=== PATIENT | female | born 1960 | race Caucasian/White ===

== ENCOUNTER 2018-01-18 14:32 | Inpatient (IN) | payer OTHER ==
--- NOTE | 2018-01-18 15:10 | PN ---
[facility] Progress Note Note: Patient is a 57 yo female who presents today for alcohol detox and intoxicated. C/O of feeling weak, lethargic and unable to standing independently Patient very unsteady on her feet, difficulty to provide appropriate hx. V/S 141/87, P103, RR 22, T99.5. Patient sent to [facility] via [facility] for further evaluation. Endorsed to Dr. Bledsoe.
--- NOTE | 2018-01-18 17:57 | PN ---
[facility] Progress Note Note: Patient medicated and cleared at [facility] and stable to continue detox, reports received from OPAL Levin.
--- NOTE | 2018-01-19 02:02 | HP ---
CIWA Score - CIWA Score Nausea/Vomitin Muscle Tremors: 4-Moderate,w/Arms Extend Anxiety: 4-Mod. Anxious/Guarded Agitation: 4-Moderately Restless Paroxysmal Sweats: 3 Orientation: 3-Disoriented Date>2 days Tacttile Disturbances: 0-None Auditory Disturbances: 0-None Visual Disturbances: 2-Mild Sensitivity Headache: 2-Mild CIWA-Ar Total Score: 25 Admission ROS BHS - HPI Chief Complaint: C/O WITHDRAWAL SX'S. SEEKING DETOX Allergies/Adverse Reactions: Allergies Allergy/AdvReac Type Severity Reaction Status Date / Time No Known Allergies Allergy Verified 01/18/18 15:56 History of Present Illness: 57 Y.O. FEMALE WITH ALCOHOLISM ADMITTED TO DETOX AFTER BEING MEDICALLY CLEARED FOR ALCOHOL INOXICATION W WEAKNESS AND ABD PAIN. CLIENT WAS CLEANRED BY [facility] AND REFERRED HERE FOR DETOX. THIS IS CLIENT FIRST ADMISSION HERE. SHE REPORTS HX /O PREVIOUS DETOX. LAST BEING A MONTH AGO AST [facility]. REPORTS LONGEST CLEAN TIME 3.5 YEARS. REPORTS FREQUENT BLACK OUTS BUT DENIES HX/O SEIZURE. DENIES AVH, PAST/PRESENT SI/HI. DENIES LEGALS PMHX- HTN, HLD, PRE-DM PSYCH- PTSD, DEPRESSION Medical Decision Making - Medical Decision Making 01/18/18 20:04 Pt received at sign out from OPAL Pleitez at 19:00. Pt pending medication and re- evaluation. -Pt states she feels much better after receiving a GI cocktail -Pt with diffuse abdominal tenderness without focal findings. Most likely secondary to vomiting -Labs with elevated liver enzymes; total bili WNL, no leukocytosis. -DC back to [facility] for detox. -I discussed the physical exam findings, ancillary test results and final diagnoses with the patient. I answered all of the patient's questions. The patient was satisfied with the care received and felt comfortable with the discharge plan and treatment plan. The Patient agrees to follow up with the primary care physician/specialist within 24-72 hours. Return precautions were given. *DC/Admit/Observation/Transfer Diagnosis at time of Disposition: Alcohol withdrawal Qualifiers: Complication of substance-induced condition: uncomplicated Qualified Code(s): F10.230 - Alcohol dependence with withdrawal, uncomplicated - Discharge Dispostion Disposition: HOME - Referrals Referrals: Niranjan Feliz MD [Staff Physician] - - Patient Instructions Printed Discharge Instructions: DI for Drug or Alcohol Withdrawal Additional Instructions: You were evaluated for alcohol withdrawal today. Please go to [facility] for admission. Please drink plenty of fluids. Return to emergency department for any new or worsening symptoms. - Post Discharge Activity Exam Limitations: No Limitations - Ebola screening Have you traveled outside of the country in the last 21 days: No Have you had contact with anyone from an Ebola affected area: No Do you have a fever: No - Review of Systems Constitutional: Chills, Loss of Appetite, Night Sweats, Changes in sleep EENT: reports: No Symptoms Reported Respiratory: reports: No Symptoms reported Cardiac: reports: No Symptoms Reported GI: reports: Nausea, Poor Appetite, Poor Fluid Intake, Abdominal cramping : reports: No Symptoms Reported Musculoskeletal: reports: No Symptoms Reported Integumentary: reports: No Symptoms Reported Neuro: reports: No Symptoms reported Endocrine: reports: Other (PPRE- DM) Hematology: reports: No Symptoms Reported Psychiatric: reports: Anxious, Depressed Other Systems: Reviewed and Negative Patient History - Patient Medical History Hx Anemia: No Hx Asthma: No Hx Chronic Obstructive Pulmonary Disease (COPD): No Hx Cancer: No Hx Cardiac Disorders: No Hx Congestive Heart Failure: No Hx Hypertension: Yes Hx Hypercholesterolemia: Yes Hx Pacemaker: No HX Cerebrovascular Accident: No Hx Seizures: No Hx Diabetes: Yes (PRE-DM) Hx Gastrointestinal Disorders: No Hx Liver Disease: No Hx Genitourinary Disorders: No Hx Sexually Transmitted Disorders: No Hx Renal Disease (ESRD): No Hx Thyroid Disease: No Hx Human Immunodeficiency Virus (HIV): No Hx Hepatitis C: No Hx Depression: Yes Hx Suicide Attempt: No Hx Bipolar Disorder: No Hx Schizophrenia: No Other Medical History: ANXIETY/ PTSD - Patient Surgical History Past Surgical History: No - PPD History Previous Implant?: Yes Documented Results: Negative w/o proof PPD to be Administered?: Yes - Reproductive History Patient is a Female of Child Bearing Age (11 -55 yrs old): Yes LMP comment: MENAPAUSE Patient : [place] - Smoking Cessation Smoking history: Current every day smoker Have you smoked in the past 12 months: No Aproximately how many cigarettes per day: 20 Cigars Per Day: 0 Hx Chewing Tobacco Use: No Initiated information on smoking cessation: Yes 'Breaking Loose' booklet given: 01/19/18 - Substance & Tx. History Hx Alcohol Use: Yes Hx Substance Use: Yes Substance Use Type: Alcohol Hx Substance Use Treatment: Yes ([facility]) - Substances Abused VODKA Route: Oral Frequency: Daily Amount used: 15 NIPS Age of first use: 42 Date of Last Use: 01/18/18 Family Disease History - Family Disease History Family Disease History: Diabetes: Father (ALCOHOLISM, HTN), Heart Disease: Father, Other: Grandparent (ALCOHOLISM), Father, Mother (ALCOHOLISM) Admission Physical Exam [facility] - Physical General Appearance: Yes: Appropriately Dressed, Mild Distress, Alcohol on Breath , Intoxicated, Tremorous, Sweating (FLUSHED), Anxious HEENTM: Yes: EOMI, Normocephalic, Normal Voice, ELLIOT, Pharynx Normal Respiratory: Yes: Chest Non-Tender, Lungs Clear, Normal Breath Sounds, No Respiratory Distress, No Accessory Muscle Use Neck: Yes: No masses,lesions,Nodules, Supple, Trachea in good position Breast: Yes: Breast Exam Deferred Cardiology: Yes: Regular Rhythm, Regular Rate, S1, S2 Abdominal: Yes: Non Tender, Soft, Increased Bowel Sounds, Protuberent Genitourinary: Yes: Other (NO C/O) Back: Yes: Normal Inspection Musculoskeletal: Yes: full range of Motion, Gait Steady Extremities: Yes: Normal Range of Motion, Non-Tender, Tremors Neurological: Yes: Alert, Motor Strength 5/5, Disoriented (TO DATE), Depressed Affect Integumentary: Yes: Dry, Warm, Other (FLUSHED) Lymphatic: Yes: Within Normal Limits - Diagnostic (1) Alcohol dependence with uncomplicated withdrawal Current Visit: Yes Status: Acute (2) Nicotine dependence Current Visit: Yes Status: Acute (3) Pre-diabetes Current Visit: Yes Status: Acute (4) HTN (hypertension) Current Visit: Yes Status: Acute (5) HLD (hyperlipidemia) Current Visit: Yes Status: Acute (6) Substance induced mood disorder Current Visit: Yes Status: Acute (7) At risk for dehydration due to poor fluid intake Current Visit: Yes Status: Acute (8) Depressed affect Current Visit: Yes Status: Acute Cleared for Admission [facility] - Detox or Rehab [facility] Level of Care: Medically Managed Detox Regimen/Protocol: Librium
[2018-01-19] MEDS ORDERED: LOPERAMIDE HCL 2 MG CAPSULE PO PRN (02:08)
[2018-01-19] MEDS ORDERED: P-EPHED 60MG/TRIPROLIDI 2.5MG TABLET PO PRN (02:08)
[2018-01-19] MEDS ORDERED: guaiFENesin/D-METHORPHAN HB 10 ML UNIT-DOSE CUPS PO PRN (02:08)
[2018-01-19] MEDS ORDERED: MAG HYDROX/AL HYDROX/SIMETH 30 ML UNIT-DOSE CUP PO PRN (02:08)
[2018-01-19] MEDS ORDERED: MAGNESIUM CITRATE 300 ML BOTTLE PO PRN (02:08)
[2018-01-19] MEDS ORDERED: ACETAMINOPHEN 325 MG TABLET (FP) PO PRN (02:08)
[2018-01-19] MEDS ORDERED: MENTHOL/PHENOL 1 EACH UD MM PRN (02:08)
[2018-01-19] MEDS ORDERED: IBUPROFEN 400 MG TABLET (FP) PO PRN (02:08)
[2018-01-19] MEDS ORDERED: MAGNESIUM HYDROX 2400MG/30ML ORAL SUSPENSION 30 ML CUP PO PRN (02:08)
[2018-01-19] MEDS: chlordiazePOXIDE HCL 25 MG CAPSULE PO SCH ×4 (04:07→22:20)
[2018-01-19 10:16] LABS: HEMATOCRIT 40.9 % (32.4-45.2); HEMOGLOBIN 13.5 GM/dL (10.7-15.3); MCH 30.7 pg (25.7-33.7); MCHC 33.1 g/dl (32.0-36.0); MEAN CELL VOLUME 92.7 fl (80-96); MEAN PLT VOLUME 7.2 fl (7.5-11.1); PLATELET COUNT 354 K/MM3 (134-434); RBC 4.41 M/mm3 (3.60-5.2); RDW 14.5 % (11.6-15.6); WHITE BLOOD COUNT 9.1 K/mm3 (4.0-10.0)
[2018-01-19] MEDS: PRENATAL VITAMINS W/ FOLIC ACID TABLET (FP) PO SCH (10:17)
[2018-01-19] MEDS: NICOTINE 21 MG/24 HOURS TOPICAL PATCH TD SCH (10:18)
[2018-01-19] MEDS: NICOTINE POLACRILEX 2 MG GUM BC PRN ×3 (10:18→22:23)
[2018-01-19 10:28] LABS: CHLORIDE 102 mmol/L (98-107); POTASSIUM 3.7 mmol/L (3.5-5.1); SODIUM 140 mmol/L (136-145)
[2018-01-19 10:51] LABS: ALBUMIN 3.6 g/dl (3.4-5.0); ALK PHOS 99 U/L (45-117); ANION GAP 13 MMOL/L (8-16); BILIRUBIN,TOTAL 0.6 mg/dL (0.2-1); BLOOD UREA NITROGEN 16 mg/dL (7-18); CALCIUM 8.3 mg/dL (8.5-10.1); CO2 25 mmol/L (21-32); CREATININE 0.5 mg/dL (0.55-1.3); GLUCOSE,RANDOM 82 mg/dL (74-106); SGOT/AST 155 U/L (15-37); SGPT/ALT 111 U/L (13-61); TOT PROT 6.4 g/dl (6.4-8.2)
[2018-01-19] MEDS ORDERED: FLU VACCINE QUAD 60 MCG/0.5 ML (MDV 18-19) IM ONE (12:00)
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
[2018-01-19] MEDS: VENLAFAXINE HCL 150 MG E.R. CAPSULE PO SCH (14:57)
[2018-01-19] MEDS: hydrOXYzine PAMOATE 50 MG CAPSULE (FP) PO PRN (14:58)
[2018-01-19] MEDS: chlordiazePOXIDE HCL 25 MG CAPSULE PO PRN (14:58)
--- NOTE | 2018-01-19 16:01 | PN ---
S CIWA - CIWA Score Nausea/Vomitin-Mild Nausea/No Vomiting Muscle Tremors: 4-Moderate,w/Arms Extend Anxiety: 4-Mod. Anxious/Guarded Agitation: 4-Moderately Restless Paroxysmal Sweats: 1-Minimal Palms Moist Orientation: 1-Uncertain about Date Tacttile Disturbances: 1-Very Mild Itch/Numbness Auditory Disturbances: 1-Very Mild Visual Disturbances: 0-None Headache: 0-None Present CIWA-Ar Total Score: 17 BHS Progress Note (SOAP) Subjective: tremor sweat restlessness low energy trouble sleep at night Objective: 01/19/18 16:03 Vital Signs Temperature 98.4 F 01/19/18 14:01 Pulse Rate 92 H 01/19/18 14:01 Respiratory Rate 157 H 01/19/18 14:01 Blood Pressure 136/73 01/19/18 14:01 O2 Sat by Pulse Oximetry (%) Laboratory Last Values WBC 9.1 K/mm3 (4.0-10.0) 01/19/18 07:00 RBC 4.41 M/mm3 (3.60-5.2) 01/19/18 07:00 Hgb 13.5 GM/dL (10.7-15.3) 01/19/18 07:00 Hct 40.9 % (32.4-45.2) 01/19/18 07:00 MCV 92.7 fl (80-96) 01/19/18 07:00 MCH 30.7 pg (25.7-33.7) 01/19/18 07:00 MCHC 33.1 g/dl (32.0-36.0) 01/19/18 07:00 RDW 14.5 % (11.6-15.6) 01/19/18 07:00 Plt Count 354 K/MM3 (134-434) 01/19/18 07:00 MPV 7.2 fl (7.5-11.1) L 01/19/18 07:00 Sodium 140 mmol/L (136-145) 01/19/18 07:00 Potassium 3.7 mmol/L (3.5-5.1) 01/19/18 07:00 Chloride 102 mmol/L (98-107) 01/19/18 07:00 Carbon Dioxide 25 mmol/L (21-32) 01/19/18 07:00 Anion Gap 13 MMOL/L (8-16) 01/19/18 07:00 BUN 16 mg/dL (7-18) 01/19/18 07:00 Creatinine 0.5 mg/dL (0.55-1.3) L 01/19/18 07:00 Creat Clearance w eGFR > 60 (>60) 01/19/18 07:00 Random Glucose 82 mg/dL (74-106) 01/19/18 07:00 Calcium 8.3 mg/dL (8.5-10.1) L 01/19/18 07:00 Total Bilirubin 0.6 mg/dL (0.2-1) 01/19/18 07:00 AST 155 U/L (15-37) H 01/19/18 07:00 ALT 111 U/L (13-61) H 01/19/18 07:00 Alkaline Phosphatase 99 U/L (45-117) 01/19/18 07:00 Total Protein 6.4 g/dl (6.4-8.2) 01/19/18 07:00 Albumin 3.6 g/dl (3.4-5.0) 01/19/18 07:00 RPR Titer Nonreactive (NONREACTIVE) 01/19/18 07:00 lab noted Assessment: 01/19/18 16:04 withdrawal sx Plan: continue detox
--- NOTE | 2018-01-19 16:45 | EKG ---
Test Reason : Blood Pressure : / mmHG Vent. Rate : 085 BPM Atrial Rate : 085 BPM P-R Int : 164 ms QRS Dur : 100 ms QT Int : 410 ms P-R-T Axes : 074 050 053 degrees QTc Int : 487 ms NORMAL SINUS RHYTHM PROLONGED QT ABNORMAL ECG NO PREVIOUS ECGS AVAILABLE Confirmed by Nadir Charles ([id number]) on 01/19/2018 4:44:50 PM Referred By: Confirmed By:Nadir Charles
[2018-01-19] MEDS: THIAMINE HCL 100 MG TABLET (FP) PO SCH (22:20)
[2018-01-19] MEDS: traZODone HCL 100 MG TABLET (FP) PO SCH (22:20)
[2018-01-19] MEDS: MELATONIN 5 MG TABLETS PO PRN (22:22)
[2018-01-20] MEDS: chlordiazePOXIDE HCL 25 MG CAPSULE PO SCH ×4 (06:02→22:23)
[2018-01-20] MEDS: VENLAFAXINE HCL 150 MG E.R. CAPSULE PO SCH (07:12)
[2018-01-20 10:24] LABS: URINE APPEARANCE CLEAR; URINE BILIRUBIN NEGATIVE (<2.0 mg/dL); URINE COLOR LTYELLOW; URINE GLUCOSE (UA) NEGATIVE (NEGATIVE); URINE KETONE NEGATIVE (NEGATIVE); URINE LEUK ESTERASE NEGATIVE (NEGATIVE); URINE NITRITE NEGATIVE (NEGATIVE); URINE PROTEIN NEGATIVE (NEGATIVE); URINE UROBILINOGEN NEGATIVE mg/dL (0.2-1.0)
[2018-01-20] MEDS: PRENATAL VITAMINS W/ FOLIC ACID TABLET (FP) PO SCH (10:34)
[2018-01-20] MEDS: NICOTINE 21 MG/24 HOURS TOPICAL PATCH TD SCH (10:34)
[2018-01-20] MEDS: NICOTINE POLACRILEX 2 MG GUM BC PRN ×4 (10:34→22:24)
--- NOTE | 2018-01-20 11:49 | PN ---
[facility] CIWA - CIWA Score Nausea/Vomitin-Mild Nausea/No Vomiting Muscle Tremors: 3 Anxiety: 3 Agitation: 3 Paroxysmal Sweats: 1-Minimal Palms Moist (Some facial perspiration) Orientation: 0-Oriented Tacttile Disturbances: 0-None Auditory Disturbances: 0-None Visual Disturbances: 0-None Headache: 0-None Present CIWA-Ar Total Score: 11 BHS Progress Note (SOAP) Subjective: C/o nausea, shakes, anxiety. States I took Vistaril at home for anxiety. States withdrawal symptoms are uncomfortable. States has taken Naltrexone in past for her alcohol problems. States is thinking about restarting here before goes home. Objective: A&Ox3. Facial perspiration present. Abd S/NT/BS+. Moderate tremors felt in hands. Vital Signs 01/20/18 01/20/18 06:00 09:54 Temperature 97.7 F 98.4 F Pulse Rate 83 89 Respiratory 18 16 Rate Blood Pressure 120/73 123/94 Lab Results WBC 9.1 K/mm3 (4.0-10.0) 01/19/18 07:00 RBC 4.41 M/mm3 (3.60-5.2) 01/19/18 07:00 Hgb 13.5 GM/dL (10.7-15.3) 01/19/18 07:00 Hct 40.9 % (32.4-45.2) 01/19/18 07:00 MCV 92.7 fl (80-96) 01/19/18 07:00 MCHC 33.1 g/dl (32.0-36.0) 01/19/18 07:00 RDW 14.5 % (11.6-15.6) 01/19/18 07:00 Plt Count 354 K/MM3 (134-434) 01/19/18 07:00 Sodium 140 mmol/L (136-145) 01/19/18 07:00 Potassium 3.7 mmol/L (3.5-5.1) 01/19/18 07:00 Chloride 102 mmol/L (98-107) 01/19/18 07:00 Carbon Dioxide 25 mmol/L (21-32) 01/19/18 07:00 Anion Gap 13 MMOL/L (8-16) 01/19/18 07:00 BUN 16 mg/dL (7-18) 01/19/18 07:00 Creatinine 0.5 mg/dL (0.55-1.3) L 01/19/18 07:00 Random Glucose 82 mg/dL (74-106) 01/19/18 07:00 Calcium 8.3 mg/dL (8.5-10.1) L 01/19/18 07:00 Labs reviewed. Assessment: Withdrawal symptoms Plan: [place] detox. Encourage rehab and oral Naltrexone initiation.
[2018-01-20] MEDS: chlordiazePOXIDE HCL 25 MG CAPSULE PO PRN ×2 (12:50→18:56)
[2018-01-20] MEDS: hydrOXYzine PAMOATE 50 MG CAPSULE (FP) PO PRN (14:34)
[2018-01-20] MEDS: traZODone HCL 100 MG TABLET (FP) PO SCH (22:23)
[2018-01-20] MEDS: MELATONIN 5 MG TABLETS PO PRN (22:24)
[2018-01-20] MEDS: THIAMINE HCL 100 MG TABLET (FP) PO SCH (22:24)
[2018-01-21] MEDS: chlordiazePOXIDE 5 MG CAPSULE PO SCH ×4 (05:52→22:15)
[2018-01-21] MEDS: NICOTINE POLACRILEX 2 MG GUM BC PRN ×3 (05:53→17:39)
[2018-01-21] MEDS: VENLAFAXINE HCL 150 MG E.R. CAPSULE PO SCH (07:59)
[2018-01-21] MEDS: hydrOXYzine PAMOATE 50 MG CAPSULE (FP) PO PRN ×4 (08:00→22:15)
[2018-01-21] MEDS: PRENATAL VITAMINS W/ FOLIC ACID TABLET (FP) PO SCH (10:49)
[2018-01-21] MEDS: NICOTINE 21 MG/24 HOURS TOPICAL PATCH TD SCH (10:49)
--- NOTE | 2018-01-21 12:07 | PN ---
[facility] Progress Note (SOAP) Subjective: feeling better no tremor less sweat sleep batter at night Objective: 01/21/18 12:04 Vital Signs Temperature 97.9 F 01/21/18 10:17 Pulse Rate 91 H 01/21/18 10:17 Respiratory Rate 16 01/21/18 10:17 Blood Pressure 118/70 01/21/18 10:17 O2 Sat by Pulse Oximetry (%) Laboratory Last Values WBC 9.1 K/mm3 (4.0-10.0) 01/19/18 07:00 RBC 4.41 M/mm3 (3.60-5.2) 01/19/18 07:00 Hgb 13.5 GM/dL (10.7-15.3) 01/19/18 07:00 Hct 40.9 % (32.4-45.2) 01/19/18 07:00 MCV 92.7 fl (80-96) 01/19/18 07:00 MCH 30.7 pg (25.7-33.7) 01/19/18 07:00 MCHC 33.1 g/dl (32.0-36.0) 01/19/18 07:00 RDW 14.5 % (11.6-15.6) 01/19/18 07:00 Plt Count 354 K/MM3 (134-434) 01/19/18 07:00 MPV 7.2 fl (7.5-11.1) L 01/19/18 07:00 Sodium 140 mmol/L (136-145) 01/19/18 07:00 Potassium 3.7 mmol/L (3.5-5.1) 01/19/18 07:00 Chloride 102 mmol/L (98-107) 01/19/18 07:00 Carbon Dioxide 25 mmol/L (21-32) 01/19/18 07:00 Anion Gap 13 MMOL/L (8-16) 01/19/18 07:00 BUN 16 mg/dL (7-18) 01/19/18 07:00 Creatinine 0.5 mg/dL (0.55-1.3) L 01/19/18 07:00 Creat Clearance w eGFR > 60 (>60) 01/19/18 07:00 POC Glucometer 111 UNITS (80-120) 01/20/18 06:07 Random Glucose 82 mg/dL (74-106) 01/19/18 07:00 Calcium 8.3 mg/dL (8.5-10.1) L 01/19/18 07:00 Total Bilirubin 0.6 mg/dL (0.2-1) 01/19/18 07:00 AST 155 U/L (15-37) H 01/19/18 07:00 ALT 111 U/L (13-61) H 01/19/18 07:00 Alkaline Phosphatase 99 U/L (45-117) 01/19/18 07:00 Total Protein 6.4 g/dl (6.4-8.2) 01/19/18 07:00 Albumin 3.6 g/dl (3.4-5.0) 01/19/18 07:00 Urine Color Ltyellow 01/20/18 07:23 Urine Appearance Clear 01/20/18 07:23 Urine pH 6.0 (5.0-8.0) 01/20/18 07:23 Ur Specific [place] 1.006 (1.001-1.035) 01/20/18 07:23 Urine Protein Negative (NEGATIVE) 01/20/18 07:23 Urine Glucose (UA) Negative (NEGATIVE) 01/20/18 07:23 Urine Ketones Negative (NEGATIVE) 01/20/18 07:23 Urine Blood Negative (NEGATIVE) 01/20/18 07:23 Urine Nitrite Negative (NEGATIVE) 01/20/18 07:23 Urine Bilirubin Negative (<2.0 mg/dL) 01/20/18 07:23 Urine Urobilinogen Negative mg/dL (0.2-1.0) 01/20/18 07:23 Ur Leukocyte Esterase Negative (NEGATIVE) 01/20/18 07:23 RPR Titer Nonreactive (NONREACTIVE) 01/19/18 07:00 lab noted ast elevation Assessment: 01/21/18 12:06 withdrawal sx Plan: continue detox
[2018-01-21] MEDS: chlordiazePOXIDE HCL 25 MG CAPSULE PO PRN ×2 (12:19→17:39)
[2018-01-21] MEDS ORDERED: ATORVASTATIN CA 10 MG TABLET (FP) PO SCH (22:00)
[2018-01-21] MEDS: THIAMINE HCL 100 MG TABLET (FP) PO SCH (22:15)
[2018-01-21] MEDS: traZODone HCL 100 MG TABLET (FP) PO SCH (22:15)
[2018-01-22] MEDS: chlordiazePOXIDE HCL 10 MG CAPSULE PO SCH ×2 (06:01→10:00)
[2018-01-22] MEDS: NICOTINE POLACRILEX 2 MG GUM BC PRN (06:03)
[2018-01-22] MEDS: VENLAFAXINE HCL 150 MG E.R. CAPSULE PO SCH (07:04)
[2018-01-22 09:28] VITALS: BP 125/83; PULSE 93; TEMP 96.4
[2018-01-22] MEDS: hydrOXYzine PAMOATE 50 MG CAPSULE (FP) PO PRN (09:28)
--- NOTE | 2018-01-22 13:44 | DS ---
[facility] Detox Discharge Summary Admission Date: 01/19/18 Discharge Date: 01/22/18 - History Present History: Alcohol Dependence - Physical Exam Results Vital Signs: Vital Signs Temperature 96.4 F L 01/22/18 09:27 Pulse Rate 93 H 01/22/18 09:27 Respiratory Rate 18 01/22/18 09:27 Blood Pressure 125/83 01/22/18 09:27 O2 Sat by Pulse Oximetry (%) Pertinent Admission Physical Exam Findings: PATIENT FOR DISCHARGE TODAY TO [facility] FOR 28 DAYS. PATIENT MEDICALLY STABLE. ALERT AND ORIENTED X 3. IN NAD. SKIN WARM AND DRY. AMBULATORY AD [place] ON UNIT. DENIES SI/HI. DISCHARGE INSTRUCTION PROVIDED UPON DISCHARGE BY STAFF. - Treatment Hospital Course: Detox Protocol Followed, Detoxed Safely, Responded well, Discharged Condition Good, Rehab Referral Accepted - Medication Discharge Medications: Ambulatory Orders Amlodipine Besylate [Norvasc -] 5 mg PO DAILY 01/19/18 Atorvastatin Ca [Lipitor] 10 mg PO HS 01/19/18 Metformin HCl [Glucophage] 500 mg PO BID 01/19/18 Trazodone HCl 100 mg PO 01/19/18 Venlafaxine HCl ER [Effexor Xr -] 150 mg PO DAILY 01/19/18 traZODone HCL [Trazodone HCl] 100 mg PO HS 01/19/18 - AMA Did Patient Leave Against Medical Advice: No
== END 2018-01-22 10:01 | disposition home or self-care (01) | DRG 775 ==
LOC: YASAS 14:32 → Y6N 01-19 00:02
PROC: HZ2ZZZZ Detoxification Services for Substance Abuse Treatment (ICD-10-PCS; principal; 2018-01-19)
DX: F10.230 Alcohol dependence with withdrawal, uncomplicated (principal); F17.210 Nicotine dependence, cigarettes, uncomplicated; F10.24 Alcohol dependence with alcohol-induced mood disorder; F33.9 Major depressive disorder, recurrent, unspecified; F43.10 Post-traumatic stress disorder, unspecified; F41.9 Anxiety disorder, unspecified; I10 Essential (primary) hypertension; E78.00 Pure hypercholesterolemia, unspecified; Z91.89 Other specified personal risk factors, not elsewhere classified
CPT/HCPCS: 36415; 80053; 81003; 82962; 84450; 85027; 86593; 90688; 93005; 93010; G0008

== ENCOUNTER 2018-01-18 15:40 | Emergency (ER) | payer OTHER ==
[2018-01-18 15:56] VITALS: BMI 34.3
[2018-01-18] MEDS ORDERED: FOLIC ACID INJECTION - 1 MG, THIAMINE HCL 100 MG, MULTIVIT INJECTION ADULT 10 ML in SOD... IVPB ONE (16:22)
[2018-01-18] MEDS ORDERED: diazePAM CARPU-JECT 10 MG/2 ML DISP.SYRIN IVPUSH ONE (16:22)
--- NOTE | 2018-01-18 16:28 | PDOC ---
History of Present Illness - General Chief Complaint: Nausea/Vomiting Stated Complaint: WEAKNESS,NAUSEA,DIZZINESS Time Seen by Provider: 01/18/18 15:49 History Source: Patient - History of Present Illness Timing/Duration: other (today) Severity: severe Associated Symptoms: reports: malaise, nausea/vomiting, weakness. denies: cough , fever/chills, headaches, seizure, shortness of breath Past History - Past Medical History Allergies/Adverse Reactions: Allergies Allergy/AdvReac Type Severity Reaction Status Date / Time No Known Allergies Allergy Verified 01/18/18 15:56 Home Medications: Ambulatory Orders NK [No Known Home Medication] 01/18/18 COPD: Yes HTN: Yes Hypercholesterolemia: Yes Psychiatric Problems: Yes (depression, ptsd, anxiety, alcoholism.) - Suicide/Smoking/Psychosocial Hx Smoking History: Current every day smoker Have you smoked in the past 12 months: No Number of Cigarettes Smoked Daily: 10 Information on smoking cessation initiated: No Hx Alcohol Use: No Drug/Substance Use Hx: No Substance Use Type: Alcohol Review of Systems - Review of Systems Constitutional: Yes: Malaise. No: Chills, Fever Respiratory: No: Shortness of Breath Cardiac (ROS): No: Chest Pain, Palpitations ABD/GI: Yes: Diarrhea, Nausea, Vomiting : No: Dysuria, Flank Pain, Hematuria *Physical Exam - Vital Signs Last Vital Signs Temp Pulse Resp BP Pulse Ox 99.1 F 91 H 12 127/83 100 01/18/18 15:53 01/18/18 15:53 01/18/18 15:53 01/18/18 15:53 01/18/18 15:53 - Physical Exam General Appearance: Yes: Appropriately Dressed, Mild Distress (tremulous and mildly anxious) HEENT: positive: Normal Voice Neck: positive: Supple Respiratory/Chest: negative: Respiratory Distress Cardiovascular: positive: Regular Rate, S1, S2 Gastrointestinal/Abdominal: positive: Soft. negative: Tender, Distended, Guarding, Rebound Musculoskeletal: negative: CVA Tenderness Integumentary: positive: Dry, Warm Neurologic: positive: Fully Oriented, Alert, Normal Mood/Affect ED Treatment Course - LABORATORY CBC & Chemistry Diagram: 01/18/18 17:00 01/18/18 17:00 Medical Decision Making - Medical Decision Making 01/18/18 16:23 57 yo F, h/o HTN, HLD, DM, ETOH abuse, here complaining that "I feel like I'm in withdrawal". Patient states she last drank alcohol about 9 AM this morning and at some point developed nausea, vomiting, weakness and tremor. No seizures. Patient also complaining of several episodes of diarrhea and vague abdominal cramping which pt initially states had started several days ago then admitted that "I have these symptoms all the time but it has gotten out of hand recently". No melena, bright red blood per rectum, fever or chills. Patient was being assessed for inpt admission at [facility] for detox today and was referred to ED for further evaluation See exam Mild ETOH withdrawal as per CIWA-Ar scale Stable but visually tremulous and mildly anxious -valium -banana bag -labs -?dispo to inpt detox at [facility] 01/18/18 18:45 Patient reports feeling better at this time, but continues to complain of upper abdominal and periumbilical pain. Will give GI cocktail and reassess. Labs only remarkable for ALT/AST >100. No old to compare. M/l 06/05 ETOH abuse. No RUQ ttp to suggest acute tamara at this time. 01/18/18 18:53 Signed out to OPAL Chi pending reassessment. Aware that I spoke to staff at [facility] (Qi Rowe) who is aware that pt will m/l be able to return to facility once improved. [facility] pt has a bed available 01/18/18 19:03 *DC/Admit/Observation/Transfer Diagnosis at time of Disposition: Alcohol withdrawal Qualifiers: Complication of substance-induced condition: uncomplicated Qualified Code(s): F10.230 - Alcohol dependence with withdrawal, uncomplicated - Referrals - Patient Instructions - Post Discharge Activity
[2018-01-18] MEDS ORDERED: diazePAM 5 MG TABLET ONE (16:32)
[2018-01-18] MEDS ORDERED: ONDANSETRON 4 MG/2 ML VIAL IVPUSH ONE (16:39)
[2018-01-18] MEDS ORDERED: KETOROLAC TROMETHAMINE 30 MG/1 ML VIAL IVPUSH ONE (16:39)
[2018-01-18 17:09] LABS: BASO % 0.2 % (0-2.0); EOS % 0.6 % (0-4.5); HEMATOCRIT 44.5 % (32.4-45.2); LYMPH % 35.7 % (8-40); MCH 30.8 pg (25.7-33.7); MCHC 33.7 g/dl (32.0-36.0); MEAN CELL VOLUME 91.5 fl (80-96); MEAN PLT VOLUME 6.7 fl (7.5-11.1); MONO % 4.4 % (3.8-10.2); NEUT % 59.1 % (42.8-82.8); PLATELET COUNT 400 K/MM3 (134-434); RBC 4.86 M/mm3 (3.60-5.2); RDW 14.4 % (11.6-15.6); WHITE BLOOD COUNT 7.6 K/mm3 (4.0-10.0)
[2018-01-18] MEDS ORDERED: diazePAM 5 MG TABLET PO ONE (17:23)
[2018-01-18] MEDS ORDERED: KETOROLAC TROMETHAMINE 30 MG/1 ML VIAL ONE (17:36)
[2018-01-18] MEDS ORDERED: ONDANSETRON 4 MG/2 ML VIAL ONE (17:36)
[2018-01-18 17:40] LABS: ALBUMIN 3.6 g/dl (3.4-5.0); ANION GAP 12 MMOL/L (8-16); BLOOD UREA NITROGEN 15 mg/dL (7-18); CALCIUM 8.4 mg/dL (8.5-10.1); CHLORIDE 103 mmol/L (98-107); CO2 26 mmol/L (21-32); GLUCOSE,RANDOM 104 mg/dL (74-106); LIPASE 88 U/L (73-393); SGPT/ALT 105 U/L (13-61); SODIUM 141 mmol/L (136-145)
[2018-01-18 17:43] LABS: ALK PHOS 106 U/L (45-117); BILIRUBIN,TOTAL 0.3 mg/dL (0.2-1); CREATININE 0.5 mg/dL (0.55-1.3); TOT PROT 7.3 g/dl (6.4-8.2)
[2018-01-18 17:49] LABS: POTASSIUM 4.1 mmol/L (3.5-5.1); SGOT/AST 125 U/L (15-37)
[2018-01-18] MEDS ORDERED: MAG HYDROX/AL HYDROX/SIMETH -MYLANTA- ORAL SUSPENSION PO ONE (18:45)
[2018-01-18] MEDS ORDERED: FAMOTIDINE 20 MG/50 ML IVPB 20 MG/50 ML MG IVPB ONE ×2 (18:45→18:57)
[2018-01-18] MEDS ORDERED: MAG HYDROX/AL HYDROX/SIMETH 30 ML UNIT-DOSE CUP ONE (18:57)
--- NOTE | 2018-01-18 19:17 | PDOC ---
*Physical Exam - Vital Signs Last Vital Signs Temp Pulse Resp BP Pulse Ox 99.1 F 91 H 12 127/83 100 01/18/18 15:53 01/18/18 15:53 01/18/18 15:53 01/18/18 15:53 01/18/18 15:53 - Physical Exam General Appearance: Yes: Nourished, Appropriately Dressed. No: Apparent Distress (laying in exam bed, AAOx3 breathing easily) Gastrointestinal/Abdominal: positive: Normal Bowel Sounds, Soft, Protuberent, Tenderness (diffuse with no focal findings). negative: Guarding, Rebound Neurologic: positive: Fully Oriented, Alert, Normal Mood/Affect, Normal Response ED Treatment Course - LABORATORY CBC & Chemistry Diagram: 01/18/18 17:00 01/18/18 17:00 - ADDITIONAL ORDERS Additional order review: Laboratory Results 01/18/18 17:00 Sodium 141 Potassium 4.1 Chloride 103 Carbon Dioxide 26 Anion Gap 12 BUN 15 Creatinine 0.5 L Creat Clearance w eGFR > 60 Random Glucose 104 Calcium 8.4 L Total Bilirubin 0.3 AST 125 H ALT 105 H Alkaline Phosphatase 106 Total Protein 7.3 Albumin 3.6 Lipase 88 01/18/18 17:00 RBC 4.86 MCV 91.5 MCHC 33.7 RDW 14.4 MPV 6.7 L Neutrophils % 59.1 Lymphocytes % 35.7 Monocytes % 4.4 Eosinophils % 0.6 Basophils % 0.2 - Medications Given in the ED: ED Medications Discontinued Medications Generic Name Dose Route Start Last Admin Trade Name Freq PRN Reason Stop Dose Admin Al Hydroxide/Mg Hydroxide 30 ml 01/18/18 18:45 01/18/18 19:00 Mylanta Suspension - PO 01/18/18 18:46 30 ml ONCE ONE Administration Diazepam 10 mg 01/18/18 16:22 01/18/18 17:43 Valium Injection - IVPUSH 01/18/18 16:23 Not Given ONCE ONE Diazepam 10 mg 01/18/18 17:23 01/18/18 16:36 Valium - PO 01/18/18 17:24 10 mg ONCE ONE Administration Famotidine/Sodium Chloride 20 mg in 50 mls @ 100 mls/hr 01/18/18 18:45 19:00 Pepcid 20 Mg Premixed Ivpb - IVPB 01/18/18 19:14 100 mls/hr ONCE ONE Administration Ketorolac Tromethamine 30 mg 01/18/18 16:39 01/18/18 17:43 Toradol Injection - IVPUSH 01/18/18 16:40 30 mg ONCE ONE Administration Ondansetron HCl 4 mg 01/18/18 16:39 01/18/18 17:43 Zofran Injection IVPUSH 01/18/18 16:40 4 mg ONCE ONE Administration Medical Decision Making - Medical Decision Making 01/18/18 20:04 Pt received at sign out from OPAL Pleitez at 19:00. Pt pending medication and re- evaluation. -Pt states she feels much better after receiving a GI cocktail -Pt with diffuse abdominal tenderness without focal findings. Most likely secondary to vomiting -Labs with elevated liver enzymes; total bili WNL, no leukocytosis. -DC back to [facility] for detox. -I discussed the physical exam findings, ancillary test results and final diagnoses with the patient. I answered all of the patient's questions. The patient was satisfied with the care received and felt comfortable with the discharge plan and treatment plan. The Patient agrees to follow up with the primary care physician/specialist within 24-72 hours. Return precautions were given. *DC/Admit/Observation/Transfer Diagnosis at time of Disposition: Alcohol withdrawal Qualifiers: Complication of substance-induced condition: uncomplicated Qualified Code(s): F10.230 - Alcohol dependence with withdrawal, uncomplicated - Discharge Dispostion Disposition: HOME - Referrals Referrals: Niranjan Feliz MD [Staff Physician] - - Patient Instructions Printed Discharge Instructions: DI for Drug or Alcohol Withdrawal Additional Instructions: You were evaluated for alcohol withdrawal today. Please go to [facility] for admission. Please drink plenty of fluids. Return to emergency department for any new or worsening symptoms. - Post Discharge Activity
[2018-01-18 19:55] VITALS: BP 120/78; PULSE 79; TEMP 98.2
== END 2018-01-18 20:43 | disposition home or self-care (01) ==
LOC: JER 15:40
PROC: 3E033GC Introduction of Other Therapeutic Substance into Peripheral Vein, Percutaneous Approach (ICD-10-PCS; principal; 2018-01-18)
PROC: 3E0333Z Introduction of Anti-inflammatory into Peripheral Vein, Percutaneous Approach (ICD-10-PCS; 2018-01-18)
DX: F10.230 Alcohol dependence with withdrawal, uncomplicated (principal); I10 Essential (primary) hypertension; E78.5 Hyperlipidemia, unspecified; E11.9 Type 2 diabetes mellitus without complications
CPT/HCPCS: 36415; 80053; 83690; 85025; 96365; 96375; 99282-25; J7030